=== PATIENT | male | born 1965 | race American Indian/Alaskan Native ===

== ENCOUNTER 2017-03-31 19:57 | Emergency (ER) | payer SELFPAY ==
[2017-03-31] MEDS ORDERED: NACL 0.9% 1000 ML 1,000 ML IV ONE (21:01)
[2017-03-31] MEDS ORDERED: MORPHINE IV ONE (21:01)
[2017-03-31] MEDS ORDERED: NEO-SYNEPHRINE 1 MG, NACL P/F VIAL (10 ML) 9.9 ML IJ**NOT IV ONE (21:02)
--- NOTE | 2017-03-31 21:08 | Emergency Department Report ---
HPI - General Chief Complaint: Urogenital-Male Time Seen by Provider: 03/31/17 20:40 - HPI HPI: This is a 51-year-old -[place] male presents to the emergency department with the complaint of a 24-hour history of priapism. Patient has a history of gout and has been having some pain in his bilateral ankles and his knee but he believed to be an exacerbation of gout. Last night he took a 800 mg ibuprofen, tramadol and a Lyrica trying to treat his gout pain. He says he woke up in the middle of night to urinate and noticed that he had an erection at that time and thought it would go away. He woke up this morning still with an erection and it has been there since. He says that he has no prior history of any priapism or erectile dysfunction. He otherwise denies any other past medical history. ED Past Medical Hx - Past Medical History Additional medical history: gout - Surgical History Past Surgical History?: No - Social History Smoking Status: Former Smoker Substance Use Type: Alcohol - Medications Home Medications: Home Medications Medication Instructions Recorded Confirmed Last Taken Type Colchicine [Colcrys] 0.6 mg PO DAILY #3 tablet 04/01/17 Unknown Rx ED Review of Systems ROS: Stated complaint: RT KNEE PAIN-H/O GOUT Other details as noted in HPI Comment: All other systems reviewed and negative Constitutional: denies: chills, fever Eyes: denies: eye pain, eye discharge, vision change ENT: denies: ear pain, throat pain Respiratory: denies: cough, shortness of breath, wheezing Cardiovascular: denies: chest pain, palpitations Gastrointestinal: denies: abdominal pain, nausea, diarrhea Genitourinary: other (penile pain, priapism). denies: dysuria Musculoskeletal: arthralgia. denies: back pain Skin: denies: rash, lesions Neurological: denies: headache, weakness, paresthesias Physical Exam - Physical Exam Vital Signs: Vital Signs 03/31/17 20:19 Temperature 98.2 F Pulse Rate 65 Respiratory 18 Rate Blood Pressure 148/74 O2 Sat by Pulse 98 Oximetry Physical Exam: GENERAL: The patient is well-developed well-nourished. HENT: Normocephalic. Atraumatic. Patient has moist mucous membranes. EYES: Extraocular motions are intact. Pupils equal reactive to light bilaterally. NECK: Supple. Trachea is midline. CHEST/LUNGS: Clear to auscultation. There is no respiratory distress noted. HEART/CARDIOVASCULAR: Regular. There is no tachycardia. There is no murmur. ABDOMEN: Abdomen is soft, nontender. Patient has normal bowel sounds. There is no abdominal distention. SKIN: Skin is warm and dry. NEURO: The patient is awake, alert, and oriented. The patient is cooperative. The patient has no focal neurologic deficits. The patient has normal speech. MUSCULOSKELETAL: There is no tenderness or deformity. There is no limitation range of motion. There is no evidence of acute injury. : Patient has an erection. There is some tenderness to palpation to the shaft of the penis but otherwise no lesions or abnormalities other than the priapism. No swelling or tenderness to palpation of the testicles and/or scrotum. No palpable hernia. ED Course Vital Signs 03/31/17 20:19 Temperature 98.2 F Pulse Rate 65 Respiratory 18 Rate Blood Pressure 148/74 O2 Sat by Pulse 98 Oximetry - Nerve Block Consent Obtained: verbal consent Time Out Performed: Yes Local Anesthetic Used: Lidocaine 1% Amount of anesthesia used: 5 Nerve Blocks: other (dorsal penile block) Procedure Successful: Yes Complications: none Patient Tolerated Procedure: well - Penile Procedure Consent Obtained: verbal consent Time Out Performed: Yes Indication: priapism management Sedation/Analgesia: opioids (morphine 4 mg) Local Anesthesia Used: Penile Nerve Block Amount of Anesthesia Used (mls): 5 Priapism Management: aspiration, phenylephrine injection Complications: none Patient Tolerated Procedure: well Additional Comments: After the patient had appropriate anesthesia via dorsal penile block, an 18- gauge needle was placed in the mid shaft into the corpus cavernosum on the left side. There was about 30 mL of blood that was aspirated and/or drained. It was then flushed with 20 mL of sterile saline. I then injected 3 mL of the phenylephrine solution. The same procedure and the same amount of aspiration and phenylephrine injection for then done on the right side. After this, I attempted to place a pressure dressing over the area to decrease the swelling. The patient was evaluated multiple times after the procedure and there was about a 50% reduction in the erection and we continued to monitor and there did not appear to be an recurrence of the full erection or priapism. ED Medical Decision Making - Lab Data Result diagrams: 03/31/17 21:13 02/13/18 21:13 - Medical Decision Making The patient originally was trying to deal with his gout. He does have a slightly swollen right knee but it is not red or significantly warm for concern of a septic joint or cellulitic infection. Uric acid was elevated at 7.7. However in taking the medications for treatment of his gout he took Lyrica which I believe could be the reason he developed priapism. The patient should not have waited so long to come in but he had had the priapism for about 18 hours when he first came into the emergency department. As per the procedural section, the patient had a successful dorsal penile block. He then had aspiration, flushing with sterile saline and then phenylephrine injection. We got about a 50% reduction in the erection and the patient says he is feeling relief as the penile block is wearing off. The is bedside and says that it also appears to be softer and reduced in size. We monitored the patient for a while and there does not appear to be any return of a full erection or the priapism. The patient will stay away from Lyrica. He was given multiple referrals for urology and understands that he needs to follow up regarding the priapism but especially since he had such a prolonged episode of the priapism to look into possible tissue damage. He also understands to return to the emergency department with any return of the priapism, signs of infection, or with any acute distress. He was given a prescription of colchicine for his gout. Critical Care Time: No Critical care attestation.: If time is entered above; I have spent that time in minutes in the direct care of this critically ill patient, excluding procedure time. ED Disposition Clinical Impression: Priapism Gout Qualifiers: Gout site: multiple sites Encounter type: initial encounter Chronicity: unspecified Disposition: DC-01 TO HOME OR SELFCARE Is pt being admited?: No Condition: Stable Instructions: Acute Gouty Arthritis (ED), Priapism (ED) Additional Instructions: Please follow up with a primary care doctor in the next few days. More importantly, please follow up with a urologist as soon as possible regarding your priapism/prolonged erection. If the erection comes back and is sustained, return to a emergency department immediately. Prescriptions: Colchicine [Colcrys] 0.6 mg PO DAILY #3 tablet Referrals: ERIKA HOLGUIN MD [Primary Care Provider] - 3-5 Days MANASA CALDERON MD [Staff Physician] - 3-5 Days AMANDA MENARD MD [Referring] - 3-5 Days LUCIO SINGLETON MD [Referring] - 3-5 Days Time of Disposition: 00:37
[2017-03-31] MEDS ORDERED: SODIUM CHLORIDE 0.9% IV ONE (21:15)
[2017-03-31] MEDS ORDERED: SODIUM CHLORIDE IV ONE (21:15)
[2017-03-31] MEDS ORDERED: PHENYLEPHRINE IV ONE ×2 (21:15)
[2017-03-31] MEDS ORDERED: [UNRECOGNIZED DRUG - OTHER] IV ONE (21:15)
[2017-03-31 21:32] LABS: Basophils % (Auto) 0.6 % (0.0-1.8); Eosinophils # (Auto) 0.3 K/mm3 (0.0-0.4); Eosinophils % (Auto) 4.1 % (0.0-4.3); Hematocrit 36.7 % (35.5-45.6); Hemoglobin 12.4 gm/dl (11.8-15.2); Lymphocytes # (Auto) 1.9 K/mm3 (1.2-5.4); Lymphocytes % (Auto) 28.7 % (13.4-35.0); Mean Corpuscular HGB Conc 34 % (32-34); Mean Corpuscular Hemoglobin 29 pg (28-32); Mean Corpuscular Volume 86 fl (84-94); Monocytes # (Auto) 0.8 K/mm3 (0.0-0.8); Monocytes % (Auto) 12.8 % (0.0-7.3); Red Blood Count 4.26 M/mm3 (3.65-5.03); Red Cell Distribution Width 13.6 % (13.2-15.2)
[2017-03-31 21:41] LABS: Platelet Count 158 K/mm3 (140-440)
[2017-03-31 21:46] LABS: BUN/Creatinine Ratio 9; Blood Urea Nitrogen 9 mg/dL (9-20); Calcium 8.7 mg/dL (8.4-10.2); Hemolysis Index 29; Uric Acid 7.7 mg/dL (3.5-7.6)
[2017-03-31] MEDS ORDERED: XYLOCAINE 2% INFILTRATI ONE (21:58)
[2017-03-31] MEDS ORDERED: NACL 0.9% 0 ML IR ONE (22:42)
[2017-04-01 00:48] VITALS: BP 124/77
== END 2017-04-01 00:55 | disposition home or self-care (01) ==
LOC: ED 19:57
DX: N48.30 Priapism, unspecified (principal); M10.9 Gout, unspecified; Z87.891 Personal history of nicotine dependence
CPT/HCPCS: 36415; 54220; 80048; 84550; 85025; 96361; 96374; 96375; 99284; J2270; J7030